=== PATIENT | female | born 1990 | race Caucasian/White ===

== ENCOUNTER 2018-01-05 18:14 | Emergency (ER) | payer BC ==
[2018-01-05] MEDS ORDERED: 0.9 % SODIUM CHLORIDE 1,000 ML BAG IV ONE (18:36)
[2018-01-05] MEDS ORDERED: DIAZEPAM 5 MG TABLET PO ONE (18:36)
--- NOTE | 2018-01-05 18:45 | Emergency Department Record ---
History of Present Illness - General Chief Complaint: Detox Evaluation Stated Complaint: PT THINKS WITHDRAW FROM MEDS Time Seen by Provider: 01/05/18 18:24 Source: Patient, Family Mode of Arrival: Ambulatory Limitations: No limitations - History of Present Illness Initial Comments: 27 yo female presents with a concern about her mediation and it effects on her. She started Neurontin in November. She suffers from chronic occipital neuralgia and migraines. She initially took the medication for 3 weeks but had symptoms she attributed to the Neurontin. She feels twitchy, shaky, intermittent nausea. She feels like she will have muscle cramps. No current headache, vision changes, double vision, speech changes, cough, chest pain, short of breath, abdominal pain, back pain, swelling of legs, calf tenderness. No vomiting or diarrhea. She sees a neurologist at [facility] and a PCP. Onset/Timin -: Days(s) History of same: No Quality: Constant, Intermittent Worsens With: Medication Context: Other Associated Symptoms: Other Treatments Prior to Arrival: None - [place] Coma Scale Eye Response: (4) Open spontaneously Motor Response: (6) Obeys commands Verbal Response: (5) Oriented [place] Total: 15 - Related Data Home Medications Medication Instructions Recorded Confirmed Last Taken Cyproheptadine HCl 4 mg PO TID PRN 01/05/18 01/05/18 2 Days Ago ~01/03/18 Gabapentin [Neurontin] 100 mg PO QHS 01/05/18 01/05/18 3 Days Ago ~01/02/18 Norethindrone [Vicenta] 0.35 mg PO DAILY 01/05/18 01/05/18 1 Day Ago ~01/04/18 Tizanidine HCl [Zanaflex] 4 mg PO TID PRN 01/05/18 01/05/18 2 Days Ago ~01/03/18 Allergies Allergy/AdvReac Type Severity Reaction Status Date / Time NSAIDS (Non-Steroidal AdvReac ABDOMINAL Verified 01/05/18 18:34 Anti-Inflamma PAIN Review of Systems Constitutional: Reports: Malaise. Denies: Chills, Fever Eyes: Denies: Eye discharge, Eye pain, Photophobia, Vision change ENT: Denies: Congestion, Throat pain Respiratory: Denies: Cough, Dyspnea, Hemoptysis, Stridor, Wheezes Cardiovascular: Denies: Chest pain, Dyspnea on exertion, Edema, Palpitations, Syncope Endocrine: Reports: Fatigue Gastrointestinal: Reports: Nausea. Denies: Abdominal pain, Diarrhea, Hematemesis, Hematochezia, Melena, Vomiting Genitourinary: Denies: Dysuria, Frequency, Hematuria, Urgency Musculoskeletal: Denies: Arthralgia, Back pain, Joint swelling, Myalgia, Neck pain Skin: Denies: Bruising, Change in color, Rash Neurological: Reports: Tremors, Weakness. Denies: Abnormal gait, Confusion, Headache, Numbness, Paresthesias, Seizure, Tingling, Vertigo Psychiatric: Denies: Anxiety Hematological/Lymphatic: Denies: Anemia, Blood Clots, Easy bleeding, Easy bruising, Swollen glands Past Medical History - SOCIAL HISTORY Smoking Status: Never smoker Alcohol Use: Rare Drug Use: None - RESPIRATORY Hx Respiratory Disorders: No - CARDIOVASCULAR Hx Cardio Disorders: No - NEURO Hx Neuropathy: Yes (occiptal neurolgia) Comment:: 2012 with osvaldo buchanan - GI Hx Reflux: Yes Hx Ulcer: Yes - Hx Genitourinary Disorders: No - ENDOCRINE Hx Diabetes: No Hx Thyroid Disease: No - MUSCULOSKELETAL Comment:: weekly chirpractor vary muscle issue - PSYCH Hx Psych Problems: No Family Medical History Any Significant Family History?: Yes Hx Heart Disease: Father Physical Exam - General General Appearance: Alert, Oriented x3, Cooperative, No acute distress, Other ( Well appearing, well spoken, appears healthy) Limitations: No limitations - Head Head exam: Atraumatic, Normocephalic, Normal inspection - Eye Eye exam: Normal appearance, PERRL, EOMI. negative: Conjunctival injection, Nystagmus, Periorbital swelling, Scleral icterus - ENT ENT exam: Normal exam, Mucous membranes moist, Normal orophraynx Ear exam: Normal external inspection Nasal Exam: Normal inspection Mouth exam: Normal external inspection Teeth exam: Normal inspection Throat exam: Normal inspection - Neck Neck exam: Normal inspection, Full ROM. negative: Tenderness, Thyromegaly - Respiratory Respiratory exam: Normal lung sounds bilaterally. negative: Respiratory distress - Cardiovascular Cardiovascular Exam: Regular rate, Normal rhythm, Normal heart sounds Peripheral Pulses: 2+: Radial (R), Radial (L) - GI/Abdominal GI/Abdominal exam: Soft. negative: Tenderness - Rectal Rectal exam: Deferred - exam: Deferred - Extremities Extremities exam: Normal inspection, Full ROM, Normal capillary refill. negative: Calf tenderness, Pedal edema, Tenderness - Back Back exam: Reports: Normal inspection, Full ROM. Denies: CVA tenderness (R), CVA tenderness (L), Muscle spasm, Rash noted, Tenderness - Neurological Neurological exam: Alert, CN II-XII intact, Normal gait, Oriented X3, Reflexes normal (biceps, triceps, patellar, achilles all equal and symmetric, no clonus of the upper or lower extremities, no resting tremor). negative: Altered, Motor sensory deficit - Psychiatric Psychiatric exam: Normal affect, Normal mood. negative: Agitated, Anxious - Skin Skin exam: Dry, Intact, Normal color, Warm Course Vital Signs 01/05/18 18:20 Temperature 97.6 F Pulse Rate 89 Respiratory 16 Rate Blood Pressure 139/62 Pulse Ox 97 - Reevaluation(s) Reevaluation #1: Vitals reviewed. NO acute changes. 01/05/18 18:48 01/05/18 19:23 No acute changes on the CBC or UA UCG is negative 01/05/18 19:34 The CMP was reviewed K is 3.4 otherwise no acute changes Magnesium is 2.0 The patient is stable She can call her PCP and Neurologist tomorrow to discuss her future Neurontin use/dosing. Medical Decision Making - Lab Data Result diagrams: 01/05/18 18:50 01/05/18 18:50 Disposition Disposition: Discharge Clinical Impression: Medication reaction Qualifiers: Encounter type: initial encounter Qualified Code(s): T88.7XXA - Unspecified adverse effect of drug or medicament, initial encounter Disposition: Home, Self-Care Condition: (1) Good Instructions: Gabapentin (By mouth), Weakness (ED) Additional Instructions: Call your neurologist tomorrow to discuss the use of your Neurontin Return or be seen if you develop any new concerns or symptoms Rest and stay well hydrated Forms: Patient Portal Access Time of Disposition: 19:35 Quality - Quality Measures Quality Measures: N/A - Blood Pressure Screening Does Patient Have Any of the Following: No Blood Pressure Classification: Normal BP Reading Systolic Measurement: 117 Diastolic Measurement: 69 Screening for High Blood Pressure: < Normal BP, F/U Not Required > [G8783] Pre-Hypertensive Follow-up Interventions: Referral to alternative/primary care provider.
[2018-01-05 19:03] LABS: BASO % 0.5 % (0-6); EOS % 0.8 % (0-6); GRAN % 64.8 % (47-80); HEMATOCRIT 43.4 % (35.0-47.0); MEAN CELL VOLUME 89.1 fl (81-97); MEAN CORPUSCULAR HEMOGLOBIN 28.7 pg (27-33); MEAN CORPUSCULAR HGB CONC 32.3 g/dl (32-36); MEAN PLATELET VOLUME 12.1 fl (7.4-10.4); MONO % 8.9 % (0-9); PLATELET COUNT 161 K/uL (130-400); RED BLOOD COUNT 4.87 M/uL (3.80-5.40); RED CELL DISTRIBUTION WIDTH 14.3 % (11.5-14.5); URINE APPEARANCE CLEAR; URINE BILIRUBIN NEGATIVE (NEGATIVE); URINE BLOOD NEGATIVE (NEGATIVE); URINE COLOR YELLOW; URINE GLUCOSE (UA) NEGATIVE (NEGATIVE); URINE KETONE NEGATIVE (NEGATIVE); URINE LEUKOCYTE ESTERASE NEGATIVE (NEGATIVE); URINE NITRITE NEGATIVE (NEGATIVE); URINE PROTEIN NEGATIVE (NEGATIVE); URINE UROBILINOGEN 0.2 E.U./dL (0.20 - 1.00); WHITE BLOOD COUNT W/O DIFF 6.6 K/uL (4.2-12.2)
[2018-01-05 19:06] LABS: HCG,QUALITATIVE URINE NEGATIVE (NEGATIVE)
[2018-01-05 19:16] LABS: BLOOD UREA NITROGEN 8 mg/dL (6-20); CREATININE 0.6 mg/dL (0.5-0.9); EST GLOMERULAR FILTRATION RATE > 60 mL/min
[2018-01-05 19:17] LABS: TOTAL PROTEIN 7.6 g/dL (6.6-8.7)
[2018-01-05 19:19] LABS: GLUCOSE,RANDOM 96 mg/dL (74-109)
[2018-01-05 19:22] LABS: ALB/GLOB RATIO 1.7 (1.1-1.8); ALBUMIN 4.8 g/dL (4.0-5.0); ALKALINE PHOSPHATASE 66 U/L (35-104); ALT/SGPT 17 U/L (<33); AST/SGOT 18 U/L (10.0-35.0)
[2018-01-05 19:33] LABS: THYROID STIMULATING HORMONE 2.91 uIU/mL (0.270-4.20)
[2018-01-05] MEDS ORDERED: POTASSIUM CHLORIDE 20 MEQ TABLET PO ONE (19:33)
[2018-01-05] MEDS ORDERED: POTASSIUM BICARB./CIT AC 25 MEQ EFF.TAB PO STA (19:43)
== END 2018-01-05 19:59 | disposition home or self-care (01) ==
LOC: ER 18:14
DX: T42.6X5A Adverse effect of other antiepileptic and sedative-hypnotic drugs, initial encounter (principal); R25.3 Fasciculation; R11.0 Nausea; R25.2 Cramp and spasm; M54.81 Occipital neuralgia
CPT/HCPCS: 99284 ×2; 83735; 85025; 80053; 81003; 84443; 81025; J3490; J7030

== ENCOUNTER 2018-10-14 21:22 | Emergency (ER) | payer BC ==
[2018-10-14] MEDS ORDERED: FAMOTIDINE IV 20 MG/2 ML VIAL IVP ONE (21:51)
[2018-10-14] MEDS ORDERED: ONDANSETRON HCL IV 4 MG/2 ML VIAL IVP ONE (21:51)
[2018-10-14] MEDS ORDERED: MORPHINE SULFATE 10 MG/ML VIAL IVP ONE (21:51)
--- NOTE | 2018-10-14 21:57 | Emergency Department Record ---
History of Present Illness - General Chief Complaint: Abdominal Pain Stated Complaint: ABD PAIN Time Seen by Provider: 10/14/18 21:51 Source: Patient Mode of Arrival: Ambulatory Limitations: No limitations - History of Present Illness Initial Comments: 28 yo female presents to ED for evaluation of epigastric abdominal pain symptoms that began 2-3 days ago, improved for a time, but worsened today. Patient reports recent nausea symptoms without vomiting, reports a previous history of duodenal ulcers (several years ago) diagnosed by [facility]. Patient reports that she was taking a PPI for a time but no longer does. Patient denies other abdominal surgery. 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 MD Complaint: Abdominal pain Onset/Timin -: Days(s) Location: Bilateral flank, Epigastric Radiation: Back Severity: Severe Severity scale (1-10): 6 Quality: Sharp Consistency: Constant Improves With: Nothing Worsens With: Eating Associated Symptoms: Nausea - Related Data LMP (females 10-50): Last week Patient : No Home Medications Medication Instructions Recorded Confirmed Last Taken Primidone 50 mg PO TID 10/14/18 10/14/18 10/14/18 Previous Rx's Medication Instructions Recorded Ondansetron [Zofran Odt] 4 mg PO Q6H PRN #15 tab.rapdis 10/15/18 Allergies Allergy/AdvReac Type Severity Reaction Status Date / Time NSAIDS (Non-Steroidal AdvReac ABDOMINAL Verified 10/14/18 22:05 Anti-Inflamma PAIN Travel Screening - Travel/Exposure Within Last 30 Days Have you traveled within the last 30 days?: No - Travel/Exposure Within Last Year Have you traveled outside the [place] in the last year?: Yes Location Detail:: [place] - Additonal Travel Details Have you been exposed to anyone with a communicable illness?: No - Travel Symptoms Symptom Screening: None Review of Systems Constitutional: Denies: Chills, Fever, Malaise, Night sweats Eyes: Denies: Eye discharge, Eye pain ENT: Denies: Congestion, Ear pain, Epistaxis Respiratory: Denies: Cough, Dyspnea Cardiovascular: Denies: Chest pain, Dyspnea on exertion Endocrine: Denies: Fatigue, Heat or cold intolerance Gastrointestinal: Reports: Abdominal pain, Nausea. Denies: Constipation, Vomiting Genitourinary: Denies: Incontinence, Retention Musculoskeletal: Denies: Arthralgia, Back pain Skin: Denies: Bruising, Change in color Neurological: Denies: Abnormal gait, Confusion, Headache, Seizure Psychiatric: Denies: Anxiety Hematological/Lymphatic: Denies: Anemia, Blood Clots Past Medical History - SOCIAL HISTORY Smoking Status: Never smoker Alcohol Use: None Drug Use: None - RESPIRATORY Hx Respiratory Disorders: No - CARDIOVASCULAR Hx Cardio Disorders: No - NEURO Hx Neuropathy: Yes (occiptal neurolgia) Comment:: tremor 05/2018 - GI Hx Reflux: Yes Hx Ulcer: Yes - Hx Genitourinary Disorders: No - ENDOCRINE Hx Diabetes: No Hx Thyroid Disease: No - MUSCULOSKELETAL Hx Musculoskeletal Disorders: Yes Comment:: weekly chirpractor vary muscle issue - PSYCH Hx Psych Problems: No Family Medical History Any Significant Family History?: Yes Hx Heart Disease: Father Physical Exam - General General Appearance: Alert, Oriented x3, Cooperative, Moderate distress (Appears uncomfortable on examination) Limitations: No limitations - Head Head exam: Atraumatic, Normocephalic, Normal inspection Head exam detail: negative: Abrasion, Contusion, Ferrer's sign, General tenderness, Hematoma, Laceration - Eye Eye exam: Normal appearance. negative: Conjunctival injection, Periorbital swelling, Periorbital tenderness, Scleral icterus - ENT Ear exam: negative: Auricular hematoma, Auricular trauma Nasal Exam: negative: Active bleeding, Discharge, Dried blood, Foreign body Mouth exam: negative: Drooling, Laceration, Muffled voice, Tongue elevation - Neck Neck exam: Normal inspection. negative: Meningismus, Tenderness - Respiratory Respiratory exam: Normal lung sounds bilaterally. negative: Rales, Respiratory distress, Rhonchi, Stridor - Cardiovascular Cardiovascular Exam: Regular rate, Normal rhythm, Normal heart sounds - GI/Abdominal GI/Abdominal exam: Soft, Tenderness (Diffuse TTP greastest epigastric region, guarding present, no rebound.). negative: Rebound, Rigid - Rectal Rectal exam: Deferred - exam: Deferred - Extremities Extremities exam: Normal inspection. negative: Pedal edema, Tenderness - Back Back exam: Denies: CVA tenderness (R), CVA tenderness (L) - Neurological Neurological exam: Alert, Normal gait, Oriented X3 - Psychiatric Psychiatric exam: Normal affect, Normal mood - Skin Skin exam: Normal color. negative: Abrasion Type of lesion: negative: abrasion Course Vital Signs 10/14/18 21:36 Temperature 97.7 F Pulse Rate 106 H Respiratory 18 Rate Blood Pressure 137/65 Pulse Ox 99 - Reevaluation(s) Reevaluation #1: 10/14/18 22:49 Laboratory studies were reviewed and are grossly unremarkable for an acute process except: WBC 5.9 with 83% Neutrophils CO2 21 AG 17 UA appears normal. Reevaluation #2: 10/14/18 23:24 Patient is back from CT imaging, reports mild improvement in pain symptoms following Morphine. Will try GI cocktail while CT imaging report is pending. Reevaluation #3: 10/14/18 23:57 CT Abdomen and Pelvis: No acute abnormality. Reevaluation #4: 10/15/18 00:05 Patient was updated on all results, offered admission for pain control. Patient declined stating that she would prefer to go home, reports that she has Nexium at home and that she will call her GI specialist tommorrow for further evaluation (Dr. Partida). Will also discharge home with Zofran as needed. Patient appears stable for discharge at this time. Medical Decision Making - Lab Data Result diagrams: 10/14/18 22:03 10/14/18 22:03 Disposition Disposition: Discharge Clinical Impression: Epigastric abdominal pain Disposition: Home, Self-Care Condition: (2) Stable Instructions: Abdominal Pain (ED) Additional Instructions: Return to ED if your symptoms worsen or if you have any concerns. Zofran and Nexium as directed. Follow-up with your GI specialist (Dr. Partida) in 1-3 days as directed. Prescriptions: Ondansetron [Zofran Odt] 4 mg PO Q6H PRN #15 tab.rapdis PRN Reason: Nausea/Vomiting Forms: Patient Portal Access Time of Disposition: 00:05 Quality - Quality Measures Quality Measures: N/A - Blood Pressure Screening Does Patient Have Any of the Following: No Blood Pressure Classification: Pre-Hypertensive BP Reading Systolic Measurement: 137 Diastolic Measurement: 65 Screening for High Blood Pressure: < Pre-Hypertensive BP, F/U Documented > [ [id number]] Pre-Hypertensive Follow-up Interventions: Referral to alternative/primary care provider.
[2018-10-14] MEDS ORDERED: 0.9 % SODIUM CHLORIDE 1000ML 1,000 ML IV SCH (22:00)
[2018-10-14 22:20] LABS: HEMATOCRIT 45.2 % (35.0-47.0); HEMOGLOBIN 15.2 gm/dl (11.6-16.0); MEAN CORPUSCULAR HEMOGLOBIN 28.6 pg (27-33); MEAN CORPUSCULAR HGB CONC 33.6 g/dl (32-36); MEAN PLATELET VOLUME 11.9 fl (7.4-10.4); PLATELET COUNT 172 K/uL (130-400); RED BLOOD COUNT 5.32 M/uL (3.80-5.40); WHITE BLOOD COUNT W/O DIFF 5.9 K/uL (4.2-12.2)
[2018-10-14 22:23] LABS: URINE APPEARANCE CLEAR; URINE BILIRUBIN NEGATIVE (NEGATIVE); URINE BLOOD NEGATIVE (NEGATIVE); URINE COLOR YELLOW; URINE GLUCOSE (UA) NEGATIVE (NEGATIVE); URINE KETONE 15 mg/dL (NEGATIVE); URINE LEUKOCYTE ESTERASE NEGATIVE (NEGATIVE); URINE NITRITE NEGATIVE (NEGATIVE); URINE PROTEIN NEGATIVE (NEGATIVE); URINE UROBILINOGEN 0.2 E.U./dL (0.20 - 1.00)
[2018-10-14 22:33] LABS: BLOOD UREA NITROGEN 11 mg/dL (6-20); CREATININE 0.6 mg/dL (0.5-0.9); EST GLOMERULAR FILTRATION RATE > 60 mL/min
[2018-10-14 22:34] LABS: TOTAL PROTEIN 7.6 g/dL (6.6-8.7)
[2018-10-14 22:36] LABS: GLUCOSE,RANDOM 96 mg/dL (74-109)
[2018-10-14 22:38] LABS: ALB/GLOB RATIO 1.5 (1.1-1.8); ALBUMIN 4.5 g/dL (4.0-5.0); ALKALINE PHOSPHATASE 68 U/L (45-87); ALT/SGPT 29 U/L (<33); AST/SGOT 24 U/L (10.0-35.0)
[2018-10-14 22:39] LABS: LIPASE 33 U/L (13-60)
[2018-10-14] MEDS ORDERED: MAGNESIUM HYDROXIDE/AL HYDROX 30 ML, LIDOCAINE VISC 2% 15ML 15 ML PO ONE ×2 (23:23)
[2018-10-14] MEDS ORDERED: PROMETHAZINE HCL 12.5 MG in 0.9 % SODIUM CHLORIDE 100ML 100 ML IVPB ONE (23:23)
[2018-10-15] MEDS ORDERED: ONDANSETRON 4 MG ODT TABLET SL ONE (00:02)
--- NOTE | 2018-10-16 23:18 | CT SCAN REPORT ---
EXAM: CT SCAN ABDOMEN/PELVIS W CONTRAST HISTORY: ABDOMINAL PAIN. TECHNIQUE: Sequential axial images were obtained from the diaphragms through the ischiorectal fossa after intravenous administration of 100 mL of Omnipaque- 300 contrast material. FINDINGS: The visualized lung bases appear normal. The liver appears homogeneous. No gallstones or ductal dilatation. Pancreas and spleen appear normal. The adrenal glands and kidneys appear normal. The small bowel appears normal. The appendix is visualized and appears normal. The urinary bladder appears normal. The osseous structures are normal. IMPRESSION: NO ACUTE ABDOMINAL OR PELVIC DISEASE PROCESS IS APPRECIATED. JOB NUMBER: [id number] [facility]
== END 2018-10-15 00:21 | disposition home or self-care (01) ==
LOC: ER 21:22
DX: R10.13 Epigastric pain (principal); R11.0 Nausea
CPT/HCPCS: 99284 ×2; 96365; 96375; 83690; 80053; 81003; 84703; 85027; 74177; Q9967; J3490; J2405; J2270; J2550; J7030